=== PATIENT | female | born 2000 | race Caucasian/White ===

== ENCOUNTER 2023-02-08 21:28 | Emergency (ER) | payer MEDICAID, OTHER ==
[~2023-02-08] VITALS: Ht 162.6 cm; Wt 61.2 kg
[~2023-02-08 21:28] MED LIST: motrin
[2023-02-08 21:39] VITALS: BP 127/56; PULSE 88; RESP 16; TEMP 97.5; O2SAT 100
== END 2023-02-09 00:06 | disposition home or self-care (01) ==
LOC: EDSEX 21:28 → MED 21:28
DX: F41.9 Anxiety disorder, unspecified (principal); R07.89 Other chest pain; Z79.899 Other long term (current) drug therapy
CPT/HCPCS: 99281